=== PATIENT | female | born 1990 | race Caucasian/White ===

== ENCOUNTER 2021-11-17 12:00 | Inpatient (IN) | payer OTHER ==
[~2021-11-17] VITALS: Ht 160 cm; Wt 84.8 kg
[2021-12-01] MEDS ORDERED: PRENATAL CAPLE1 EAC1 PO (10:46)
== END 2021-12-03 12:45 | disposition home or self-care (01) | DRG 807 ==
LOC: LDR 11-30 12:00 → OB/GYN 12-01 20:45
PROVIDERS: ADMIT Obstetrics & Gynecology; ATTEND Obstetrics & Gynecology
PROC: 10E0XZZ Delivery of Products of Conception, External Approach (ICD-10-PCS; principal; 2021-12-01)
PROC: 0W8NXZZ Division of Female Perineum, External Approach (ICD-10-PCS; 2021-12-01)
PROC: 4A1HXCZ Monitoring of Products of Conception, Cardiac Rate, External Approach (ICD-10-PCS; 2021-12-01)
DX: O80 Encounter for full-term uncomplicated delivery (principal); Z37.0 Single live birth; Z3A.40 40 weeks gestation of pregnancy; Z20.822 Contact with and (suspected) exposure to COVID-19

== ENCOUNTER → 2021-11-23 11:48 | Outpatient (CLI) | payer OTHER ==
[~2021-11-23 11:48] MED LIST: PRENATAL CAPLE1 EAC1 PO
== END | disposition home or self-care (01) ==
LOC: NST 11:48
PROVIDERS: ATTEND Obstetrics & Gynecology Maternal & Fetal Medicine
DX: Z34.83 Encounter for supervision of other normal pregnancy, third trimester (principal)

== ENCOUNTER 2021-11-27 09:54 | Outpatient (CLI) | payer OTHER | END 2021-11-27 10:35 | disposition home or self-care (01) | LOC: NST 09:54 | PROVIDERS: ATTEND Obstetrics & Gynecology Maternal & Fetal Medicine | DX: Z34.83 Encounter for supervision of other normal pregnancy, third trimester (principal) ==

== ENCOUNTER 2021-11-29 12:29 | Outpatient (CLI) | payer OTHER | END 2021-11-29 12:45 | disposition home or self-care (01) | LOC: NST 12:29 | PROVIDERS: ATTEND Obstetrics & Gynecology | DX: Z34.83 Encounter for supervision of other normal pregnancy, third trimester (principal) ==

== ENCOUNTER 2021-12-01 08:07 | Outpatient (CLI) | payer OTHER ==
[2021-12-01] MEDS ORDERED: PRENATAL CAPLE1 EAC1 PO (10:46)
== END 2021-12-01 09:58 | disposition home or self-care (01) ==
LOC: NST 08:07
PROVIDERS: ATTEND Obstetrics & Gynecology Maternal & Fetal Medicine
DX: Z34.83 Encounter for supervision of other normal pregnancy, third trimester (principal)

== ENCOUNTER 2022-11-22 09:17 | Emergency (ER) | payer OTHER ==
[~2022-11-22] VITALS: Ht 157.5 cm; Wt 77.6 kg
== END 2022-11-22 16:13 | disposition home or self-care (01) ==
LOC: ER 09:17
DX: O99.611 Diseases of the digestive system complicating pregnancy, first trimester (principal); K92.89 Other specified diseases of the digestive system; Z3A.12 12 weeks gestation of pregnancy

== ENCOUNTER 2023-05-17 08:56 | Inpatient (IN) | payer OTHER ==
[~2023-05-17] VITALS: Ht 160 cm; Wt 90.3 kg
== END 2023-05-19 12:34 | disposition home or self-care (01) | DRG 807 ==
LOC: LDR 08:56 → OB/GYN 08:56
PROVIDERS: ADMIT Obstetrics & Gynecology; ATTEND Obstetrics & Gynecology
PROC: 10E0XZZ Delivery of Products of Conception, External Approach (ICD-10-PCS; principal; 2023-05-17)
PROC: 0W8NXZZ Division of Female Perineum, External Approach (ICD-10-PCS; 2023-05-17)
PROC: 4A1HXCZ Monitoring of Products of Conception, Cardiac Rate, External Approach (ICD-10-PCS; 2023-05-17)
DX: O80 Encounter for full-term uncomplicated delivery (principal); Z37.0 Single live birth; Z3A.39 39 weeks gestation of pregnancy; Z20.822 Contact with and (suspected) exposure to COVID-19

== ENCOUNTER 2024-09-17 11:42 | Outpatient (CLI) | payer OTHER | END 2024-09-17 11:50 | disposition home or self-care (01) | LOC: MAMO-SONO 11:42 | PROVIDERS: ATTEND Obstetrics & Gynecology Gynecology | DX: N63 Unspecified lump in breast (principal); N64.4 Mastodynia; N60.11 Diffuse cystic mastopathy of right breast ==